=== PATIENT | female | born 2000 | race Caucasian/White ===

== ENCOUNTER 2022-05-13 06:39 | Emergency (ER) | payer MEDICAID, SELFPAY ==
[2022-05-13 06:40] VITALS: BP 126/94; PULSE 80; RESP 16; TEMP 36.8; O2SAT 100; BMI 27.3
--- NOTE | 2022-05-13 06:59 | PC.NURSE ---
Pt resting in bed. No needs or complaints voiced at this time.
[2022-05-13 07:00] LABS: Microscopic, Urine URINE MICROSCOPIC (MICROSCOPIC)
--- NOTE | 2022-05-13 07:02 | HMH.EDNVD ---
ED Disposition Clinical Impression: Gastritis Qualifiers: Gastritis type: unspecified gastritis Chronicity: acute Gastritis bleeding: without bleeding Qualified Code(s): K29.00 - Acute gastritis without bleeding Disposition: Home, Self-Care Condition on Discharge: Good Instructions: DI for Acute Abdominal Pain Additional Instructions: use meds and see pcp for follow up Prescriptions: Pantoprazole Sodium [Protonix 40mg tablet] 40 mg PO DAILY #30 tab Transmission Status: Pending to [id number] - Critical Care Critical Care Time: No Attestation: On , the high probability of a clinically significant, sudden or life threatening deterioration of the following system(s) required my full and direct attention, intervention and personal management. The time I documented below is in addition to time spent performing reported procedures but includes the following listed in this critical care notation. Medical Decision Making - Medical Records Medical records reviewed: Yes: I reviewed the patient's medical records. - Ephraim Inquiry Pt receiving controlled substance: No Vital Signs: 05/13/22 06:40 05/13/22 07:31 Temperature 98.2 F Temperature Source Oral Pulse Rate 67 Pulse Rate [Left Radial] 80 Respiratory Rate 16 18 Blood Pressure 122/93 H Blood Pressure [Right Arm] 126/94 H Blood Pressure Mean 103 Blood Pressure Mean [Right Arm] 104 Blood Pressure Source [Right Arm] Automatic Cuff Blood Pressure Position [Right Arm] Sitting 02 Sat by Pulse Oximetry 100 99 Oxygen Delivery Method Room Air Room Air - Lab Data Lab results reviewed: Yes: I reviewed the patient's lab results. Lab Results 05/13/22 06:45: Urine Color Yellow, Urine Appearance Sl cloudy, Urine pH 6.0, Ur Specific [place] >= 1.030, Urine Protein Trace, Urine Glucose (UA) Negative, Urine Ketones Negative, Urine Blood 2+, Urine Nitrate Negative, Urine Bilirubin 1+ A, Urine Urobilinogen 0.2, Ur Leukocyte Esterase 1+ A, Urine RBC Occasional, Urine WBC 5-10, Ur Squamous Epith Cells 5-10, Urine Bacteria 2+, Urine Mucus Trace 05/13/22 06:45: Urine HCG, Qual Negative 05/13/22 07:05: WBC 7.5, RBC 5.17, Hgb 16.2, Hct 48.6 H, MCV 93.9, MCH 31.3 H, MCHC 33.3, RDW 12.9, Plt Count 216, MPV 10.4, Neut % (Auto) 52.0, Lymph % (Auto) 37.3, Wise % (Auto) 6.1, Eos % (Auto) 2.3, Baso % (Auto) 2.2 H, Neut # (Auto) 3.9, Lymph # (Auto) 2.8, Wise # (Auto) 0.5, Eos # (Auto) 0.2, Baso # (Auto) 0.2 05/13/22 07:05: Sodium 141, Potassium 3.5, Chloride 105, Carbon Dioxide 24, Anion Gap 15.5 H, BUN 10, Creatinine 0.90, Estimated Creat Clear 102, Estimated GFR 78, Est GFR ( Amer) 95, Glucose 111 H, Calcium 10.3 H, Total Bilirubin 0.6, AST 29, ALT 26, Alkaline Phosphatase 118, C-Reactive Protein 0.6, Total Protein 8.1, Albumin 4.9, Globulin 3.2, Albumin/Globulin Ratio 1.5 05/13/22 07:05: ESR 6 05/13/22 07:05: Amylase 72, Procalcitonin 0.049 05/13/22 07:05: Lipase 52 Result diagrams: 05/13/22 07:05 05/13/22 07:05 Orders (Tests/Meds): ED MEDICATIONS Generic Name Dose Route Start Last Admin Trade Name Freq PRN Reason Stop Dose Admin Sodium Chloride 1,000 mls @ 999 mls/hr 05/13/22 07:00 05/13/22 07:05 Sod Chlor 0.9% 1000ml Bag IV 05/13/22 08:00 999 mls/hr .Q1H1M KATHY Administration Sodium Chloride 8 ml 05/13/22 06:58 05/13/22 07:24 Sodium Chloride 0.9% 10ml Vial IV 06/12/22 06:57 8 ml NEEDED PRN Administration dilute pepcid Discontinued Medications Generic Name Dose Route Start Last Admin Trade Name Freq PRN Reason Stop Dose Admin Famotidine 20 mg 05/13/22 06:58 05/13/22 07:24 Famotidine 20mg/2ml Vial IV 05/13/22 06:59 20 mg ONCE ONE Administration Metoclopramide HCl 10 mg 05/13/22 06:58 05/13/22 07:24 Metoclopramide Hcl 10mg/2ml Vial IVP 05/13/22 06:59 10 mg ONCE ONE Administration Ondansetron HCl 4 mg 05/13/22 06:57 05/13/22 07:24 Ondansetron 4mg/2ml Vial IV 05/13/22 06:58 4 mg ONC
[2022-05-13 07:03] LABS: Appearance,Urine SL CLOUDY (Clear); Blood, Urine 2+ (Negative); Color,Urine YELLOW (Yellow); Glucose,Urine (UA) Negative (Negative); Ketones,Urine Negative (Negative); Leukocyte Esterase,Urine 1+ (Negative); Nitrate,Urine Negative (Negative); Protein,Urine TRACE (Negative); Specific Gravity, Urine >= 1.030 (1.005-1.030); Urobilinogen,Urine 0.2 EU/dl (0.2)
[2022-05-13 07:06] LABS: Urine Pregnancy, HCG Qual. Negative (Negative)
[2022-05-13 07:10] LABS: Bilirubin,Urine 1+ (Negative)
[2022-05-13 07:21] LABS: Bacteria,Urine 2+ /lpf; Mucus,Urine Trace /lpf; RBC,Urine Occasional #/hpf (0-3)
[2022-05-13 07:22] LABS: Basophils # 0.2 K/mm3 (0-0.2); Basophils % 2.2 % (0.1-2.0); Eosinophils # 0.2 K/mm3 (0.0-0.4); Eosinophils % 2.3 % (0.1-12.0); Hematocrit 48.6 % (37.0-47.0); Hemoglobin 16.2 g/dL (12.2-16.2); Lymphocytes # 2.8 K/mm3 (0.7-4.5); Lymphocytes % 37.3 % (10-50); Mean Corpuscular HGB Conc 33.3 g/dL (31.8-35.4); Mean Corpuscular Hemoglobin 31.3 pg (27.0-31.2); Mean Corpuscular Volume 93.9 fl (81-99); Mean Platelet Volume 10.4 fl (7.4-10.4); Monocytes # 0.5 K/mm3 (0.1-1.0); Monocytes % 6.1 % (1.7-9.3); Neutrophils # 3.9 K/mm3 (1.8-7.8); Platelet Count 216 K/mm3 (142-424); Red Blood Count 5.17 M/mm3 (4.20-5.40); Red Cell Distribution Width 12.9 % (11.5-17.5); White Blood Count 7.5 K/mm3 (4.8-10.8)
[2022-05-13 07:27] LABS: Alanine Aminotransferase 26 U/L (12-78); Albumin Level 4.9 g/dl (3.5-5.0); Albumin/Globulin Ratio 1.5 (1.1-1.8); Alkaline Phosphatase 118 U/L (38-126); Anion Gap 15.5 mEq/L (5-15); Aspartate Amino Transferase 29 U/L (14-36); Bilirubin,Total 0.6 mg/dl (0.2-1.3); Blood Urea Nitrogen 10 mg/dl (7-17); Calcium 10.3 mg/dl (8.4-10.2); Carbon Dioxide 24 mmol/L (22.0-30.0); Chloride 105 mmol/L (98-107); Creatinine Clearance Estimated 102 mL/min (50-200); Estimated Glomerular Filt Rate 78 ml/min (>60); GFR (African American) 95 ML/MIN (>60); Globulin 3.2 g/dL (1.3-3.2); Glucose 111 mg/dl (74-100); Lipase 52 U/L (23-300); Potassium 3.5 mmoL/L (3.5-5.1); Sodium 141 mmol/L (136-145); Total Protein,Serum 8.1 g/dl (6.3-8.2)
[2022-05-13 07:30] LABS: Amylase 72 U/L (30-110)
[2022-05-13 07:31] VITALS: BP 122/93; PULSE 67; RESP 18; O2SAT 99
[2022-05-13 07:32] LABS: C-Reactive Protein 0.6 mg/L (0-4)
--- NOTE | 2022-05-13 07:47 | PC.NURSE ---
pt reporting she is wanting to see how much longer she can leave. She has to take care of her kids. Pt reports is feeling better. Notified ER MD, gave verbal order for Protonix 40 mg PO once and states he will work on her d/c paperwork.
[2022-05-13 07:48] LABS: Erythrocyte Sedimentation Rate 6 mm/hr (0-20); Procalcitonin 0.049 ng/mL (0.0-2.0)
--- NOTE | 2022-05-13 07:53 | PC.NURSE ---
pt IV removed at this time per her request
[2022-05-13 08:10] VITALS: BP 122/93; PULSE 70; RESP 18; TEMP 36.9; O2SAT 99
== END 2022-05-13 08:14 | disposition home or self-care (01) ==
PROVIDERS: Emergency Provider Emergency Medicine
DX: K29.00 Acute gastritis without bleeding (principal)
CPT/HCPCS: 80053; 81001; 81025; 82150; 83690; 84145; 85025; 85651; 86140; 87086; 96361; 96374; 96375; 99283; J2405

== ENCOUNTER 2022-05-14 09:06 | Emergency (ER) | payer MEDICAID, SELFPAY ==
[2022-05-14 09:36] VITALS: BP 115/85; PULSE 70; RESP 16; TEMP 36.6; O2SAT 98; BMI 23.9; BMI 25.4
--- NOTE | 2022-05-14 09:50 | US_ITS ---
FINAL REPORT CLINICAL HISTORY: intermittent midline pelvic pain X 4 days FINDINGS: Transvaginal sonographic images of the pelvis were obtained. The uterus is retroverted as a variant measuring 4.9 x 2.9 x 4.7 cm. The endometrium measures 1 mm. The right ovary measures 2.6 x 1.8 x 1.6 cm. The left ovary measures 3.4 x 2.2 x 1.4 cm. Blood flow is seen in both ovaries. No free fluid is seen in the pelvis. IMPRESSION: No acute process. Reviewed, Interpreted and Dictated by Jean Alvarenga III, MD Transcribed by Theresa Rehman Authenticated and [facility]
--- NOTE | 2022-05-14 09:52 | HMH.EDABDPAI ---
ED Disposition Clinical Impression: Abdominal pain Disposition: Home, Self-Care Condition on Discharge: Good Instructions: DI for Acute Abdominal Pain Additional Instructions: At this time was felt you are safe to be discharged from the emergency department. If new or worsening symptoms please do not hesitate to return for continued evaluation. Please establish care with PCP immediately. Please contact gastroenterology for follow-up. Prescriptions: Ondansetron [Zofran 4mg ODT] 4 mg PO TIDP PRN #10 tab PRN Reason: Nausea Transmission Status: Pending to [id number] Referrals: Provider,MD Mitch [Primary Care Provider] - Anitha Reeves MD [Physician] - - Critical Care Critical Care Time: No Attestation: On 05/14/22, the high probability of a clinically significant, sudden or life threatening deterioration of the following system(s) required my full and direct attention, intervention and personal management. The time I documented below is in addition to time spent performing reported procedures but includes the following listed in this critical care notation. Medical Decision Making - Ephraim Inquiry Pt receiving controlled substance: No Vital Signs: 05/14/22 09:36 05/14/22 10:00 05/14/22 11:00 Temperature 98 F Temperature Source Oral Pulse Rate 71 55 L Pulse Rate [Radial] 70 Respiratory Rate 16 Blood Pressure 132/91 H 116/70 Blood Pressure [Right Arm] 115/85 Blood Pressure Mean 104 90 Blood Pressure Mean [Right Arm] 95 Blood Pressure Position [Right Arm] Sitting 02 Sat by Pulse Oximetry 98 98 98 Oxygen Delivery Method Room Air Room Air Room Air - Lab Data Lab Results 05/14/22 10:14: SARS-CoV-2 (PCR) Not detected, Influenza A Untype (PCR) Not detected, Influenza Type B (PCR) Not detected 05/14/22 10:24: WBC 9.3, RBC 5.18, Hgb 16.2, Hct 49.1 H, MCV 94.8, MCH 31.3 H, MCHC 33.0, RDW 13.0, Plt Count 229, MPV 11.0 H, Neut % (Auto) 72.6, Lymph % (Auto) 20.4, [place] % (Auto) 3.8, Eos % (Auto) 1.7, Baso % (Auto) 1.5, Neut # (Auto) 6.8, Lymph # (Auto) 1.9, [place] # (Auto) 0.4, Eos # (Auto) 0.2, Baso # (Auto) 0.1 05/14/22 10:24: Sodium 142, Potassium 3.5, Chloride 109 H, Carbon Dioxide 23, Anion Gap 13.5, BUN 6 L D, Creatinine 0.90, Estimated Creat Clear 95, Estimated GFR 78, Est GFR ( Amer) 95, Glucose 102 H, Calcium 10.3 H, Total Bilirubin 0.5, AST 31, ALT 24, Alkaline Phosphatase 113, Total Protein 8.1, Albumin 4.9, Globulin 3.2, Albumin/Globulin Ratio 1.5, Lipase 36 05/14/22 14:45: Urine Color Yellow, Urine Appearance Clear, Urine pH 5.5, Ur Specific [place] 1.010, Urine Protein Negative, Urine Glucose (UA) Negative, Urine Ketones 2+, Urine Blood 1+, Urine Nitrate Negative, Urine Bilirubin Negative, Urine Urobilinogen 0.2, Ur Leukocyte Esterase Negative Result diagrams: 05/14/22 10:24 05/14/22 10:24 Orders (Tests/Meds): ED MEDICATIONS Discontinued Medications Generic Name Dose Route Start Last Admin Trade Name Alejandroq PRN Reason Stop Dose Admin Acetaminophen 1,000 mg 05/14/22 09:50 05/14/22 10:53 Acetaminophen 500mg Tab PO 05/14/22 09:51 1,000 mg ONCE ONE Administration Dicyclomine HCl 20 mg 05/14/22 09:51 05/14/22 10:53 Dicyclomine 10mg Capsule PO 05/14/22 09:52 20 mg ONCE ONE Administration Iopamidol 75 ml 05/14/22 12:53 05/14/22 12:53 Iopamidol-370 (76%);100ml Bottle IV 05/14/22 12:54 75 ml ONCE ONE Administration Morphine Sulfate 2 mg 05/14/22 12:27 05/14/22 12:31 Morphine 2mg/Ml Syringe IV 05/14/22 12:28 2 mg ONCE ONE Administration Ondansetron HCl 4 mg 05/14/22 09:50 05/14/22 10:53 Ondansetron 4mg Odt SL 05/14/22 09:51 4 mg ONCE ONE Administration Sodium Chloride 10 ml 05/14/22 12:53 05/14/22 12:53 Sodium Chloride 0.9% 10ml Syr (Rad Only) IV 05/14/22 12:54 10 ml ONCE ONE Administration ORDERS Category Date Time Status Lactic Acid Stat Lab 05/14/22 09:50 Ordered Urinalysis and
[2022-05-14 10:00] VITALS: BP 132/91; PULSE 71; O2SAT 98
[2022-05-14 10:23] LABS: Coronavirus 19, PCR Not Detected (NotDetected); Influenza A, PCR Not Detected (NotDetected); Influenza B, PCR Not Detected (NotDetected)
--- NOTE | 2022-05-14 10:23 | PC.NURSE ---
Attempted strait stick in RT AC and was unsuccessful. BERNA blunt aware
--- NOTE | 2022-05-14 10:23 | PC.NURSE ---
pt to US with epic radiant analyst via wc.
[2022-05-14 10:35] LABS: Basophils # 0.1 K/mm3 (0-0.2); Basophils % 1.5 % (0.1-2.0); Eosinophils # 0.2 K/mm3 (0.0-0.4); Eosinophils % 1.7 % (0.1-12.0); Hematocrit 49.1 % (37.0-47.0); Hemoglobin 16.2 g/dL (12.2-16.2); Lymphocytes # 1.9 K/mm3 (0.7-4.5); Lymphocytes % 20.4 % (10-50); Mean Corpuscular Hemoglobin 31.3 pg (27.0-31.2); Mean Corpuscular Volume 94.8 fl (81-99); Monocytes # 0.4 K/mm3 (0.1-1.0); Monocytes % 3.8 % (1.7-9.3); Neutrophils # 6.8 K/mm3 (1.8-7.8); Neutrophils % 72.6 % (37.0-80.0); Platelet Count 229 K/mm3 (142-424); Red Blood Count 5.18 M/mm3 (4.20-5.40); White Blood Count 9.3 K/mm3 (4.8-10.8)
[2022-05-14 10:40] LABS: Chloride 109 mmol/L (98-107)
[2022-05-14 10:41] LABS: Potassium 3.5 mmoL/L (3.5-5.1); Sodium 142 mmol/L (136-145)
[2022-05-14 10:43] LABS: Alanine Aminotransferase 24 U/L (12-78); Alkaline Phosphatase 113 U/L (38-126); Anion Gap 13.5 mEq/L (5-15); Aspartate Amino Transferase 31 U/L (14-36); Bilirubin,Total 0.5 mg/dl (0.2-1.3); Blood Urea Nitrogen 6 mg/dl (7-17); Calcium 10.3 mg/dl (8.4-10.2); Carbon Dioxide 23 mmol/L (22.0-30.0); Creatinine Clearance Estimated 95 mL/min (50-200); Estimated Glomerular Filt Rate 78 ml/min (>60); GFR (African American) 95 ML/MIN (>60); Glucose 102 mg/dl (74-100); Lipase 36 U/L (23-300)
[2022-05-14 10:44] LABS: Albumin Level 4.9 g/dl (3.5-5.0); Albumin/Globulin Ratio 1.5 (1.1-1.8); Globulin 3.2 g/dL (1.3-3.2); Total Protein,Serum 8.1 g/dl (6.3-8.2)
[2022-05-14 11:00] VITALS: BP 116/70; PULSE 55; O2SAT 98
--- NOTE | 2022-05-14 11:05 | PC.NURSE ---
Rounded on patient, she is sitting up austrian style on ED stretcher talking with family at BS. She reports she doesn't need anything at this time and devan light is within reach. She is aware we are waiting on test results at this time.
--- NOTE | 2022-05-14 12:08 | PC.NURSE ---
rounded on pt, she was requesting more medication. Advised her MD was in with pt at this time and I would notify him as soon as he stepped out.
--- NOTE | 2022-05-14 12:26 | CT_ITS ---
FINAL REPORT TECHNIQUE: After the administration of intravenous contrast, axial images were obtained through the abdomen and pelvis by computed tomography. The study was performed with techniques to keep radiation dose as low as reasonably achievable, (ALARA). Individual dose reduction techniques using automated exposure control or adjustment of mA and/or kV according to the patient's size were employed. CLINICAL HISTORY: ABD PAIN FINDINGS: Abdomen: The lung bases are clear. There is a less than 1 cm cyst in liver. There is probable sludge or stones in the gallbladder. The spleen is unremarkable. The adrenals are normal. The pancreas is unremarkable. The kidneys enhance appropriately. The aorta is normal in caliber. There is no free fluid or adenopathy. Pelvis: The appendix is either small or may represent an appendiceal stump without evidence of inflammation. The urinary bladder is unremarkable. There is no free fluid or adenopathy. IMPRESSION: Sludge or stones in the gallbladder. If indicated, gallbladder ultrasound may be helpful for areas Reviewed, Interpreted and Dictated by Jean Alvarenga III, MD Transcribed by Theresa Rehman Authenticated and [facility]
[2022-05-14 14:55] LABS: Microscopic, Urine URINE MICROSCOPIC (MICROSCOPIC)
[2022-05-14 14:56] LABS: Appearance,Urine CLEAR (Clear); Bilirubin,Urine Negative (Negative); Blood, Urine 1+ (Negative); Color,Urine YELLOW (Yellow); Glucose,Urine (UA) Negative (Negative); Ketones,Urine 2+ (Negative); Leukocyte Esterase,Urine Negative (Negative); Nitrate,Urine Negative (Negative); PH,Urine 5.5 (5.0-8.5); Protein,Urine Negative (Negative); Urobilinogen,Urine 0.2 EU/dl (0.2)
[2022-05-14 15:08] LABS: Urine Pregnancy, HCG Qual. Negative (Negative)
[2022-05-14 15:23] LABS: Bacteria,Urine Trace /lpf; Squamous Epithelial Cell,Urine Occasional #/hpf (0-5); WBC,Urine Occasional #/hpf (0-3)
[2022-05-14 15:30] VITALS: BP 113/65; PULSE 68; RESP 16; TEMP 36.6; O2SAT 98
== END 2022-05-14 15:30 | disposition home or self-care (01) ==
LOC: UTC 09:07 → ER 09:33
PROVIDERS: Emergency Provider Emergency Medicine
DX: R10.9 Unspecified abdominal pain (principal); Z79.899 Other long term (current) drug therapy; Z88.1 Allergy status to other antibiotic agents; Z72.0 Tobacco use; F12.90 Cannabis use, unspecified, uncomplicated; F41.9 Anxiety disorder, unspecified
CPT/HCPCS: 74177; 76830; 80053; 81001; 81025; 83690; 85025; 96374; 99284; C9803; Q9967; U0003; U0005

== ENCOUNTER 2023-09-23 17:13 | Emergency (ER) | payer MEDICAID, SELFPAY ==
--- NOTE | 2023-09-23 17:54 | EXP.UTC ---
Discharge Plan Disposition Patient Disposition: Home, Self-Care Condition: Good Prescriptions Prescriptions: New cefdinir 300 mg capsule 300 mg PO BID Qty: 20 0RF methylprednisolone 4 mg Tablets,Dose Pack 4 mg PO DIRECTED 6 Days Qty: 21 0RF Rx Instructions: Take 1 pack as directed for 6 days No Action buspirone 15 mg tablet 15 mg PO ONCE PRN (Reason: anxiety) ondansetron 4 MG tablet,disintegrating 4 mg PO TIDP PRN (Reason: Nausea) Qty: 10 0RF citalopram 20 MG tablet 1 tab PO DAILY pantoprazole 40 MG tablet,delayed release (DR/EC) 40 mg PO DAILY Qty: 30 0RF Referrals Follow up/Referrals: Provider,Referral, MD [Primary Care Provider] - See instructions Activity Restrictions/Add. Instructions Additional Instructions/Restrictions: Drink plenty of fluids. Take tylenol or ibuprofen for pain or fever. Take the medications as directed. Follow up with your regular doctor. GO TO THE ER FOR ANY WORSENING SYMPTOMS Clinical Impressions Clinical Impression: Otitis media Instructions Patient Instructions: Middle Ear Infection, Cefdinir, Methylprednisolone Discharge ED Provider: Zia Velasco [facility] General Stated complaint: ear pain both ears Time Seen by Provider: 09/23/23 17:54 History of Present Illness Provider Complaint: She states that she has had bilateral ear pain for the past 4 days. Related Data Home Medications Medication Instructions Recorded Confirmed buspirone 15 mg tablet 15 mg PO ONCE PRN anxiety 04/04/19 05/13/22 citalopram 20 mg tablet 1 tab PO DAILY Anxiety 05/13/22 05/13/22 Previous Rx's Medication Instructions Recorded pantoprazole 40 mg tablet,delayed 40 mg PO DAILY #30 tabs 05/13/22 release ondansetron 4 mg disintegrating 4 mg PO TIDP PRN Nausea #10 tabs 05/14/22 tablet cefdinir 300 mg capsule 300 mg PO BID #20 caps 09/23/23 methylprednisolone 4 mg tablets in 4 mg PO DIRECTED 6 days #21 tabs 09/23/23 a dose pack Allergies Allergy/AdvReac Type Severity Reaction Status Date / Time Amoxicillin Allergy Unknown Uncoded 09/16/17 15:08 [facility] Disclaimer: The information contained in this section may have been updated after the patient was seen, as this information can be updated by other users. Social History Smoking Status: Current every day smoker tobacco type: e-cigarettes alcohol intake: never substance use type: marijuana current occupational status: employed Travel in the last 8 weeks: None ROS Obtained: Yes All systems reviewed & no additional complaints except as documented Constitutional Constitutional: Denies chills, Reports fever(s) and Reports poor appetite Eyes Eyes: Denies eye discharge ENT Ears, Nose, Mouth, and Throat: Denies ear discharge, Reports otalgia, Denies hearing loss, Denies sinus pain and Reports sore throat Cardiovascular Cardiovascular: Denies chest pain and Denies dyspnea Respiratory Respiratory: Denies chest congestion, Reports cough and Denies dyspnea Gastrointestinal Gastrointestingal: Denies abdominal pain, diarrhea, nausea or vomiting Musculoskeletal Musculoskeletal: Denies arthralgias Integumentary/Breasts Skin/Breast: Denies rash Physical Exam General General appearance: alert and in no apparent distress Head Head exam: atraumatic, normocephalic and normal inspection Eye Eye exam: Present normal appearance; Absent PERRL or EOMI ENT ENT exam: Present mucous membranes moist and normal external ear exam Expanded ENT Exam TM/Canal exam: Bilateral TM: erythema, bulging and effusion Nose exam: Absent sinus tenderness Nasal speculum exam: Bilateral: normal Mouth exam: Present normal external inspection and other; Absent drooling Teeth exam: Present normal inspection Throat exam: Present tonsillar erythema and tonsillomegaly Neck Neck exam: Present normal inspection, full ROM and trachea midline; Absent tenderness, meningismus or lymphadenopathy Chest Chest inspection: Present normal inspection and symmetric chest wall rise; Absent tenderness Respiratory Respiratory exam: Present normal lung sounds bilaterally; Absent respiratory distress, wheezes or stridor Cardiovascular Cardiovascular exam: Present regular rate, normal rhythm and normal heart sounds; Absent tachycardia or irregular rhythm Abdominal Exam Abdominal exam: Present soft and normal bowel sounds; Absent distention, tenderness, guarding, rebound or rigidity Extremities Exam Extremities exam: Present normal inspection and normal capillary refill; Absent tenderness, joint swelling or calf tenderness Back Exam Back exam: Present normal inspection and full ROM; Absent tenderness, CVA tenderness (R) or CVA tenderness (L) Neurological Exam Neurological exam: Present alert, oriented X3, CN II-XII intact, normal gait and reflexes normal; Absent motor sensory deficit Psychiatric Psychiatric exam: Present normal affect and normal mood Skin Skin exam: Present warm, dry, intact and normal color Lymphatic Lymphatic Findings: no adenopathy Medical Decision Making Medical Records Medical records reviewed: No I reviewed the patient's medical records. Ephraim Inquiry Pt receiving controlled substance: No
[2023-09-23 18:00] VITALS: BP 127/88; PULSE 80; RESP 16; TEMP 36.8; O2SAT 100; BMI 20.2
[2023-09-23 18:46] VITALS: BP 127/88; PULSE 80; RESP 16; TEMP 36.8; O2SAT 100
== END 2023-09-23 18:46 | disposition home or self-care (01) ==
PROVIDERS: Emergency Provider Nurse Practitioner Family
DX: H66.93 Otitis media, unspecified, bilateral (principal); F17.290 Nicotine dependence, other tobacco product, uncomplicated
CPT/HCPCS: 99204; 99212; G0463

== ENCOUNTER 2023-12-31 00:30 | Emergency (ER) | payer MEDICAID, SELFPAY ==
[2023-12-31 00:38] VITALS: BMI 21.7
[2023-12-31 00:40] VITALS: BP 128/74; PULSE 101; RESP 20; TEMP 37.7; O2SAT 97; BMI 21.7
[2023-12-31 00:41] LABS: Coronavirus 19, PCR Not Detected (NotDetected); Influenza A, PCR Not Detected (NotDetected); Influenza B, PCR Not Detected (NotDetected)
--- NOTE | 2023-12-31 00:43 | ED_ITS ---
Discharge Plan Disposition Patient Disposition: Home, Self-Care Prescriptions Prescriptions: New ondansetron HCl 4 mg tablet 4 mg PO Q8H PRN (Reason: nausea and vomiting) 5 Days Qty: 30 0RF azithromycin 500 mg tablet 500 mg PO DAILY 2 Days Qty: 2 0RF Rx Instructions: start on day 2 of therapy No Action buspirone 15 mg tablet 15 mg PO ONCE PRN (Reason: anxiety) ondansetron 4 MG tablet,disintegrating 4 mg PO TIDP PRN (Reason: Nausea) Qty: 10 0RF citalopram 20 MG tablet 1 tab PO DAILY pantoprazole 40 MG tablet,delayed release (DR/EC) 40 mg PO DAILY Qty: 30 0RF cefdinir 300 mg capsule 300 mg PO BID Qty: 20 0RF methylprednisolone 4 mg Tablets,Dose Pack 4 mg PO DIRECTED 6 Days Qty: 21 0RF Rx Instructions: Take 1 pack as directed for 6 days Referrals Follow up/Referrals: Provider,Referral, MD [Primary Care Provider] - See instructions Activity Restrictions/Add. Instructions Additional Instructions/Restrictions: Please follow-up with your primary care provider. Please return to the emergency department if you develop any new or worsening symptoms or become concerned for your health. Take Tylenol and ibuprofen as needed for pain. Please take Zofran as needed for nausea and vomiting. Clinical Impressions Clinical Impression: Strep pharyngitis Discharge ED Provider: Sanya Khan General Adult HPI General Chief complaint: Upper Respiratory Infection Stated complaint: headache,body aches,sore throat,fever 103,nausea Time Seen by Provider: 12/31/23 00:35 Mode of Arrival: Ambulatory Source of Information: Patient Limitations: No Limitations Description of Symptoms (Recalled from ER Triage Doc. by RN): Pt ambulatory to ED with C/O headache, body aches, sore throat, and nausea since 9am yesterday morning. Pt reports symptoms are similar to when she had covid before. Pt took tylenol @1100 yesterday. History of Present Illness HPI narrative: 23-year-old female without significant past medical history presents with multiple complaints. Reports mild headache, body aches, back soreness, sore throat, intermittent nausea since approximate 90 this morning. Tylenol improved symptoms earlier today but has not had anything recently. Reports it feels like when she had COVID before. She also reports some pain in her bilateral ears. She reports fever at home up to 103. Related Data Home Medications Medication Instructions Recorded Confirmed buspirone 15 mg tablet 15 mg PO ONCE PRN anxiety 04/04/19 05/13/22 citalopram 20 mg tablet 1 tab PO DAILY Anxiety 05/13/22 05/13/22 Previous Rx's Medication Instructions Recorded pantoprazole 40 mg tablet,delayed 40 mg PO DAILY #30 tabs 05/13/22 release ondansetron 4 mg disintegrating 4 mg PO TIDP PRN Nausea #10 tabs 05/14/22 tablet cefdinir 300 mg capsule 300 mg PO BID #20 caps 09/23/23 methylprednisolone 4 mg tablets in 4 mg PO DIRECTED 6 days #21 tabs 09/23/23 a dose pack azithromycin 500 mg tablet 500 mg PO DAILY 2 days #2 tabs 12/31/23 ondansetron HCl 4 mg tablet 4 mg PO Q8H PRN nausea and 12/31/23 vomiting 5 days #30 tabs Allergies Allergy/AdvReac Type Severity Reaction Status Date / Time Amoxicillin Allergy Intermediate Rash Uncoded 12/31/23 01:03 [facility] Disclaimer: The information contained in this section may have been updated after the patient was seen, as this information can be updated by other users. Social History Smoking Status: Current every day smoker tobacco type: e-cigarettes alcohol intake: never substance use type: marijuana current occupational status: employed Travel in the last 8 weeks: None ROS Obtained: Yes All systems reviewed & no additional complaints except as documented Physical Exam General General appearance: alert and in no apparent distress Head Head exam: atraumatic and normocephalic Eye Eye exam: Present normal appearance, PERRL and EOMI ENT ENT exam: Present TM's normal bilaterally, normal external ear exam and other (Erythematous posterior oropharynx, cobblestoning noted, patient sounds mildly congested) Neck Neck exam: Present normal inspection and full ROM Chest Chest inspection: Present normal inspection and symmetric chest wall rise; Absent tenderness Respiratory Respiratory exam: Present normal lung sounds bilaterally; Absent respiratory distress Cardiovascular Cardiovascular exam: Present regular rate and normal rhythm Abdominal Exam Abdominal exam: Present soft; Absent distention, tenderness or guarding Extremities Exam Extremities exam: Present normal inspection; Absent edema or joint swelling Back Exam Back exam: Present normal inspection; Absent tenderness Neurological Exam Neurological exam: Present alert and oriented X3; Absent motor sensory deficit Psychiatric Psychiatric exam: Present normal affect and normal mood Skin Skin exam: Present warm, dry and normal color Lymphatic Lymphatic Findings: no adenopathy Medical Decision Making Medical Records Medical records reviewed: Yes I reviewed the patient's medical records. Ephraim Inquiry Pt receiving controlled substance: No Ephraim was queried for this patient: No Vital Signs: 12/31/23 00:40 12/31/23 01:00 Temperature 99.8 F H Temperature Source Oral Pulse Rate 97 H Pulse Rate [Left Radial] 101 H Respiratory Rate 20 Blood Pressure 101/61 L Blood Pressure [Right Arm] 128/74 Blood Pressure Mean [Right Arm] 92 Blood Pressure Source [Right Arm] Automatic Cuff Blood Pressure Position [Right Arm] Sitting 02 Sat by Pulse Oximetry 97 96 Oxygen Delivery Method Room Air Lab Data Lab results reviewed: Yes I reviewed the patient's lab results. Lab Results 12/31/23 00:37: Group A Strep Rapid Positive A Orders (Tests/Meds): ED MEDICATIONS Generic Name Dose Route Start Last Admin Trade Name Freq PRN Reason Stop Dose Admin Amoxicillin 500 mg 12/31/23 01:00 12/31/23 01:04 Amoxicillin 500mg Capsule PO 12/31/23 01:01 Not Given ONCE ONE Discontinued Medications Generic Name Dose Route Start Last Admin Trade Name Freq PRN Reason Stop Dose Admin Acetaminophen 1,000 mg 12/31/23 00:39 12/31/23 00:44 Acetaminophen 500mg Tab PO 12/31/23 00:40 1,000 mg ONCE ONE Administration Ibuprofen 600 mg 12/31/23 00:39 12/31/23 00:44 Ibuprofen 600 Mg Tablet PO 12/31/23 00:40 600 mg ONCE ONE Administration Ondansetron HCl 4 mg 12/31/23 00:39 12/31/23 00:44 Ondansetron 4mg Odt SL 12/31/23 00:40 4 mg ONCE ONE Administration ORDERS Category Date Time Status Rapid PCR Covid and Flu A/B Stat Lab 12/31/23 00:37 Received Strep Scrn Group A (Rapid) Stat Lab 12/31/23 00:37 Completed Medical Decision Narrative: 23-year-old female without significant past medical history presents for flulike symptoms. History was obtained interactive discussion with patient and chart review. On arrival, patient is [afebrile, hemodynamically stable, satting appropriately, alert, oriented x4, GCS 15], moving all extremities spontaneously. Full physical exam performed and significant for erythematous posterior oropharynx, clear TMs bilaterally, clear lungs bilaterally, nasal congestion noted Differential includes but is not limited to viral URI, viral pharyngitis, bacterial pharyngitis. Patient was given p.o. Tylenol, ibuprofen, Zofran for symptomatic management and correction of underlying abnormalities. Workup initiated including strep swab, COVID flu swab. On re-evaluation, patient [remains afebrile, HD stable.] Laboratory workup independently interpreted by me and significant for positive strep swab.. Given patient history, exam and workup, patient's presentation most likely represents strep pharyngitis. These findings were communicated patient. She reports that she has a significant rash to amoxicillin. Given this, we will treat with azithromycin for 3-day course. She was given 500 mg in ED. Patient discharged in stable condition with instructions regarding symptomatic care. Precautions given. Procedures Risk/Benefits of Procedure(s) Were Explained: Yes Critical Care Critical Care Time Critical Care Time: No
[2023-12-31] MEDS: ACETAMINOPHEN 500MG TAB 1000 MG PO (00:44)
[2023-12-31] MEDS: IBUPROFEN 600 MG TABLET PO (00:44)
[2023-12-31] MEDS: ONDANSETRON 4MG ODT 4 MG SL (00:44)
[2023-12-31 00:58] LABS: Strep Scrn Group A (Rapid) Positive (Negative)
[2023-12-31 01:00] VITALS: BP 101/61; PULSE 97; O2SAT 96
[2023-12-31] MEDS: AZITHROMYCIN 250MG TABLET 500 MG PO (01:13)
[2023-12-31 01:15] VITALS: BP 101/61; PULSE 91; RESP 20; TEMP 37.7; O2SAT 97
== END 2023-12-31 01:16 | disposition home or self-care (01) ==
LOC: ER 00:55
PROVIDERS: Emergency Provider Emergency Medicine
DX: J02.0 Streptococcal pharyngitis (principal); R07.0 Pain in throat; R51.9 Headache, unspecified; R50.9 Fever, unspecified; R11.0 Nausea; H92.03 Otalgia, bilateral; F17.290 Nicotine dependence, other tobacco product, uncomplicated
CPT/HCPCS: 87430; 87636; 99283